=== PATIENT | female | born 2000 | race Two or more races ===

== ENCOUNTER 2024-04-27 14:33 | Emergency (ER) | payer MEDICAID, SELFPAY ==
[2024-04-27 14:57] VITALS: BP 120/73; PULSE 116; RESP 18; TEMP 37.1; O2SAT 95; BMI 33.5
--- NOTE | 2024-04-27 15:03 | XR_ITS ---
EXAMINATION: Ankle, left 3 views . Technique: Ankle AP, oblique, lateral 3 views Date and time of exam: April 27, 2024 1511 hours INDICATIONS: Patient fell today with injury to the ankle, ankle pain. FINDINGS: No acute fracture No dislocation No foreign body IMPRESSION: No acute fracture
--- NOTE | 2024-04-27 15:03 | XR_ITS ---
Examination: Foot, left, 3 views Technique: AP, oblique, lateral views foot, 3 views Date and time of exam: April 27, 2024 1511 hours INDICATIONS: Patient fell today with injury to the foot, foot pain FINDINGS: No fracture or dislocation No opaque foreign body IMPRESSION: No acute fracture
--- NOTE | 2024-04-27 15:38 | PD.EDLOWEX ---
Lower Extremity Injury RME/HPI General Chief Complaint: Extremity Injury, Lower Stated Complaint: LEFT FOOT INJURY Time Seen by Provider: 04/27/24 14:38 Arrival date/time: 04/27/24 14:33 24-year-old female presents emergency department complaints of left foot injury and left ankle pain after twisting and falling to the ground while mopping the floor Limitations: no limitations Related Data Previous Rx's ?Medication ?Instructions ?Recorded hydroxyzine HCl 50 mg tablet 50 mg PO Q6H PRN anxiety #20 tabs 07/21/23 ibuprofen 800 mg tablet 800 mg PO TID PRN pain #30 tabs 04/27/24 Allergies Allergy/AdvReac Type Severity Reaction Status Date / Time NKA* Allergy Uncoded 04/27/24 14:35 Review of Systems Review of Systems Systems Reviewed: All systems reviewed, normal except as documented Constitutional Constitutional: Reports system reviewed and no additional complaints, except as documented, Denies fever(s) and Denies headache(s) Eyes Eyes: Reports system reviewed and no additional complaints, except as documented and Denies blurry vision ENT Ears, Nose, Mouth, and Throat: Reports system reviewed and no additional complaints, except as documented, Denies headache(s), Denies nasal congestion and Denies nasal discharge Cardiovascular Cardiovascular: Reports system reviewed and no additional complaints, except as documented, Denies chest pain and Denies dyspnea Respiratory Respiratory: Reports system reviewed and no additional complaints, except as documented, Denies chest congestion, Denies cough and Denies dyspnea Gastrointestinal Gastrointestinal: Reports system reviewed and no additional complaints, except as documented and Denies abdominal pain Musculoskeletal Musculoskeletal: Reports system reviewed and no additional complaints, except as documented, Reports abnormal gait, Reports arthralgias, Denies deformity, Reports joint swelling, Denies numbness and Denies tingling Integumentary/Breasts Skin/Breast: Reports system reviewed and no additional complaints, except as documented and Denies rash Neurologic Neurologic: Reports system reviewed and no additional complaints, except as documented, Reports as per HPI, Reports abnormal gait, Denies headache(s), Denies numbness and Denies tingling Past Medical History Past Medical History NEUROLOGIC: Negative Neurological Disorders CARDIAC: Negative Cardiac Disorders ED Exam General Limitations: Present no limitations General appearance: Present alert and in no apparent distress Head Head exam: Present atraumatic Eye Eye exam: Present normal appearance, PERRL and EOMI ENT ENT exam: Present normal exam, normal oropharynx and mucous membranes moist Neck Neck exam: Present normal inspection, full ROM and trachea midline Chest Chest inspection: Present normal inspection and symmetric chest wall rise Respiratory Respiratory exam: Present normal lung sounds bilaterally Cardiovascular Cardiovascular exam: Present regular rate, normal rhythm and normal heart sounds Abdominal Exam Abdominal exam: Present soft and normal bowel sounds Extremities Exam Extremities exam: Present full ROM, tenderness, normal capillary refill and joint swelling Back Exam Back exam: Present normal inspection and full ROM Neurological Exam Neurological exam: Present alert, oriented X3 and CN II-XII intact Psychiatric Psychiatric exam: Present normal affect and normal mood Skin Skin exam: Present warm, dry, intact and normal color Course Quality Measures none Orders Category Date Time Status Crutches .NOW Care 04/27/24 15:51 Active cookie wrap [Splint / Immobilizer] STAT Care 04/27/24 15:51 Active XR ankle comp LT min 3V Stat Exams 04/27/24 15:03 Completed XR foot comp LT min 3V Stat Exams 04/27/24 15:03 Completed Vital Signs Vital signs: Vital Signs Temperature 98.7 F 04/27/24 14:57 Pulse Rate 116 H 04/27/24 14:57 Respiratory Rate 18 04/27/24 14:57 Blood Pressure 120/73 04/27/24 14:57 Pulse Oximetry (%) 95 04/27/24 14:57 Oxygen Delivery Method Room Air 04/27/24 14:57 O2 saturation 95% room air within normal limits Extremity Injury, Lower MDM Narrative MDM Narrative:: 24-year-old female presents emergency department complaints of left foot injury and left ankle pain after twisting and falling to the ground while mopping the floor On exam patient well-appearing patient not appear ill or toxic On exam patient is tenderness of left ankle and foot X-ray of the left ankle and foot obtained no acute fracture dislocation noted Patient discharged home in no distress to follow-up with primary care doctor in the next 24 to 48 hours and for any worsening symptoms to return to the ER immediately Patient data External records reviewed:: [facility] previous records Clinical information provided by:: patient Social determinants that could affect healthcare access:: none Patient has the following chronic illnesses:: None How is presenting disease/condition affected by chronic disease/condition?: no chronic disease Evaluation data The following diagnostics were reviewed and interpreted by me:: radiology exam(s) Lab and/or radiology exams considered but not ordered:: Radiology obtain Interpretation Summary: Reviewed by me Medications / Prescriptions Medications or Prescriptions considered but not ordered:: Given Rx Medication administrations:: Rx Consultations Consultation(s) initiated? (list below): No Diagnosis Extremity Injury, Lower Differential Diagnosis: ankle sprain and strain and ankle fracture Most likely diagnosis given after review of the tests above:: Ankle sprain Admission Indicated Admission indicated?: not indicated Admission Request Was there a request for admission?: No Disposition Plan Disposition Plan: Discharge Discharge Attestation Discharge Attestation: The patient and all family members were given an opportunity to ask questions and understood the discharge instructions. Discharge instructions specifically effects, indications for sooner follow up or return to the emergency department, and the expected course of current diagnosis. Patient condition: Stable Discharge Plan Plan Patient Disposition: HOME (Self Care) Disposition Comment: Stable Prescriptions/Referrals Prescriptions/Med Rec: New ibuprofen 800 mg tablet 800 mg PO TID PRN (Reason: pain) Qty: 30 0RF No Action hydroxyzine HCl 50 mg tablet 50 mg PO Q6H PRN (Reason: anxiety) Qty: 20 0RF Referrals: Janki Zacarias FNP [Primary Care Provider] - 04/28/24 Problem List Clinical Impression: Ankle sprain and strain Patient/Caregiver Discharge Instructions Additional Instructions: Please follow up with your primary care doctor in the next 24-48hrs for any worsening symptoms return here immediately Print Language: Hungarian Stand Alone Forms: [facility] Award Info., Work/School Release, Patient Portal Info Letter KRUPA/POLLO Supervising Physician JAVED Supervising Physician: Dr Bailey
== END 2024-04-27 15:53 | disposition home or self-care (01) ==
PROVIDERS: Emergency Provider Emergency Medicine; PCP Registered Nurse Community Health
DX: S93.402A Sprain of unspecified ligament of left ankle, initial encounter (principal); X50.1XXA Overexertion from prolonged static or awkward postures, initial encounter
CPT/HCPCS: 73610; 73630; 99283

== ENCOUNTER 2024-08-15 11:27 | Emergency (ER) | payer MEDICAID, SELFPAY ==
[2024-08-15 12:07] VITALS: BP 142/91; PULSE 136; RESP 20; TEMP 37.8; O2SAT 97; BMI 32.3
--- NOTE | 2024-08-15 12:12 | PD.EDRME ---
Rapid Medical Screening Exam RME Arrival date/time: 08/15/24 11:27 24-year-old female presents to the emergency department complaints of 4 days generalized weakness, vomiting and diarrhea. I have greeted and performed a focused initial assessment of this patient. Initial appropriate labs ordered at this time. A comprehensive ED assessment and evaluation of the patient and analysis of all test and completion of medical decision making process will be conducted by additional ED provider. Chief Complaint: Nausea/Vomiting/Diarrhea Time Seen by Provider: 08/15/24 11:49 Vital signs: Vital Signs Temperature 100.1 F 08/15/24 12:07 Pulse Rate 136 H 08/15/24 12:07 Respiratory Rate 20 08/15/24 12:07 Blood Pressure 142/91 H 08/15/24 12:07 Pulse Oximetry (%) 97 08/15/24 12:07 Oxygen Delivery Method Room Air 08/15/24 12:07
[2024-08-15 12:46] LABS: Basophils # (Auto) 0.1 Thou/mm3 (0.0-0.2); Basophils % (Auto) 1 % (0-2.5); Eosinophils # (Auto) 0.1 Thou/mm3 (0.0-0.5); Eosinophils % (Auto) 2 % (0-10); Hematocrit 39.1 % (36.0-46.0); Immature Granulocytes % (Auto) 0 % (0-0); Immature Granulocytes Auto 0.01 Thou/mm3 (0.00-0.00); Lymphocytes # (Auto) 2.4 Thou/mm3 (1.0-4.8); Lymphocytes % (Auto) 38 % (10-50); Mean Corpuscular HGB Conc 33.2 g/dl (31.0-37.0); Mean Corpuscular Hemoglobin 27.1 pg (25.0-35.0); Mean Corpuscular Volume 82 fL (80-100); Monocytes # (Auto) 0.2 Thou/mm3 (0.0-0.8); Monocytes % (Auto) 3 % (0-12); Neutrophils # (Auto) 3.6 Thou/mm3 (1.8-7.7); Neutrophils % (Auto) 56 % (37-80); Nucleated Red Blood Cell % 0 /100 WBC (0); Platelet Count 458 Thou/mm3 (140-440); RDW Standard Deviation 42.8 fL (36.4-46.3); White Blood Count 6.4 Thou/mm3 (3.6-11.0)
[2024-08-15] MEDS: ONDANSETRON ODT 4 MG TABRAP PO (12:57)
[2024-08-15 13:05] LABS: Collection Type, Urine Clean Catch
[2024-08-15 13:09] LABS: Alanine Aminotransferase 41 U/L (10-49); Albumin, Serum 4.6 gm/dL (3.5-5.0); Albumin/Globulin Ratio 1.4 (1.2-2.2); Alkaline Phosphatase 118 U/L (46-116); Anion Gap 14 (7-16); Aspartate Amino Transferase 54 U/L (0-34); BUN/Creatinine Ratio 16 Ratio (12-20); Bilirubin,Total 0.5 mg/dL (0.3-1.2); Blood Urea Nitrogen 13 mg/dL (9-23); Calcium 8.8 mg/dL (8.3-10.6); Calcium (Corrected) 8.8 mg/dL (8.5-10.1); Carbon Dioxide 24.9 mMol/L (20.0-31.0); Chloride 100 mMol/L (98-107); Creatinine (Component) 0.8 mg/dL (0.6-1.3); Estimated Creatinine Clearance 108.1 mL/min (>60); Globulin 3.4 gm/dL (2.3-3.5); Glucose 117 mg/dL (74-106); Lipase 31 U/L (12-53); Osmolality,Calculated 278 (275-295); Potassium 3.8 mMol/L (3.4-5.1); Sodium 139 mMol/L (136-145); eGFR > 60 See Note
[2024-08-15 13:14] LABS: HCG Qualitative,Urine Negative
--- NOTE | 2024-08-15 13:21 | PD.EDNV ---
Nausea/Vomit./Diarrhea-RME/HPI General Chief complaint: Nausea/Vomiting/Diarrhea Stated complaint: VOMITING TIMES 3 DAYS Time Seen by Provider: 08/15/24 11:49 Arrival date/time: 08/15/24 11:27 24 year old female present to emergency room with c/o of generalized abdominal pain, weakness for 3-4 days LOCATION: generalized periumbical abdominal pain SEVERITY: Symptoms are described as being severe with limitations on activities of daily living QUALITY: Symptoms are described as being cramping CONTEXT: The patient is unable to identify any inciting events. DURATION/TIMING: The symptoms started approximately 4 day ago and have been constant this then, and have been progressive getting worse. ASSOCIATED SYMPTOMS: The patient is unable to identify any other associated symptoms. MODIFYING FACTORS: The patient is unable to identify any alleviating or aggravating symptoms. PERTINENT ROS: reports emesis is nonbloody, diarrhea is nonbloody, no recent foreign travel, no recent ingestion of raw seafood or meat, no head trauma, no headache, no chest pain, no orthostatis symptoms, denies any focal abdominal pain, denies any toxicological ingestions REVIEW OF SYSTEMS: See History of Present Illness - with the exception of those mentioned in the history of present illness, all other systems reviewed and reported as negative GENERAL: In general the patient is awake, interactive, in an emergency department gurney. HEAD/EYES/EARS/NOSE/THROAT: normo-cephalic, atraumatic, mucus membranes are moist, anicteric, palpebral conjunctiva is pink, trachea is midline. CARDIOVASCULAR: regular rate and regular rhythm, no murmurs, heart sounds are not distant, strong pulses in all four extremities that are equal and symmetric bilateral upper and lower extremities, normal capillary refill. CHEST/PULMONARY: normal chest rise and fall, good air movement, clear to auscultation bilaterally, normal inspiratory to expiratory ratios without evidence of respiratory distress. NECK: No midline/Paraspinal tenderness, no step off ROM/Strenght intact No Kernig and bruzinski sign. No trauma ABDOMEN: soft, generalized abdominal tenderness, no masses appreciated BACK: normal range of motion without pain. NEUROLOGICAL: cranio-facial features are symmetric, moves all four extremities equally without obvious limitations or weakness. EXTREMITY: no tenderness to palpation over the long bones or large joints of the bilateral upper and lower extremities, no joint swelling, no joint erythema, no signs of trauma, no unilateral leg swelling and no peripheral edema. SKIN: warm, dry, well-perfused, no jaundice, no rash, no telangiectasias or petechia. PSYCH: calm, cooperative, no evidence of psychosis or agitation RME / HPI RME / HPI Narrative: 08/15/24 11:27 24-year-old female presents to the emergency department complaints of 4 days generalized weakness, vomiting and diarrhea. I have greeted and performed a focused initial assessment of this patient. Initial appropriate labs ordered at this time. A comprehensive ED assessment and evaluation of the patient and analysis of all test and completion of medical decision making process will be conducted by additional ED provider. Related Data Previous Rx's ?Medication ?Instructions ?Recorded hydroxyzine HCl 50 mg tablet 50 mg PO Q6H PRN anxiety #20 tabs 07/21/23 ibuprofen 800 mg tablet 800 mg PO TID PRN pain #30 tabs 04/27/24 azithromycin 500 mg tablet 500 mg PO QDAY 3 days #3 tabs 08/15/24 ondansetron 4 mg disintegrating 4 mg PO Q8H PRN nausea and 08/15/24 tablet vomiting #20 tabs Allergies Allergy/AdvReac Type Severity Reaction Status Date / Time NKA* Allergy Uncoded 08/15/24 11:30 Course Course Course Narrative: Patient presenting with nausea, vomiting, and diarrhea.? Vital signs were reviewed.? Patient afebrile.? Abdominal exam is benign.? No evidence of acute surgical emergency or infection requiring antibiotics.? I considered biliary disease, bowel obstruction, colitis, mesenteric ischemia, appendicitis, urinary tract infection, infectious diarrhea, however, these are less likely given the history and exam.? While in ED patient was provided with IV fluids, zofran, toradol? at which point patient stated that their symptoms had improved. Provided with prescription for zofran Advised to continue Ibuprofen and Tylenol at home as needed for pain/fever. Patient is to followup with primary physician if symptoms continue. Advised to return to the ER if concern for inability to tolerate PO intake, dehydration, or other concerns. Plan:?? Discharge from ETC Ibuprofen/Acetaminophen for Pain/Fever Prescription for ondansetron for nausea. Pt was advised on supportive therapies, including increasing dietary fiber, eating smaller meals, refrain from eating copious amounts of irritating foods (fatty foods, milk products, chocolate, and caffeine), maintaining a food diary, advancing fluids as tolerated, refraining from EtOH consumption, decreasing stress, and increasing exercise. Maintain Fluid Intake: Pedialyte/Gatorade, Juice, Non-caffeinated Pop (Sprite) Patient to follow up with PCP or in ER should symptoms worsen or not improve. Patient verbally expressed understanding and all questions were addressed. Quality Measures none Orders Category Date Time Status Bedside COVID-19 Antigen Test NOW Care 08/15/24 12:08 Active Bedside Influenza A&B Antigen Test NOW Care 08/15/24 12:09 Completed Insert IV NOW Care 08/15/24 12:12 Active CBC Stat Lab 08/15/24 12:29 Completed Comprehensive Metabolic Panel Stat Lab 08/15/24 12:29 Completed HCG Qualitative,Urine Stat Lab 08/15/24 12:50 Completed Lipase Stat Lab 08/15/24 12:29 Completed Urinalysis Stat Lab 08/15/24 12:50 Completed Ketorolac Inj [Toradol Inj] Med 08/15/24 13:22 Discontinued 30 mg IVP X1 ONE Ondansetron Inj [Zofran Inj] Med 08/15/24 12:08 Discontinued 4 mg IV X1 ONE Ondansetron Inj [Zofran Inj] Med 08/15/24 14:28 Discontinued 4 mg IV X1 ONE Ondansetron Odt [Zofran Odt] Med 08/15/24 12:46 Discontinued 4 mg PO X1 ONE Sodium Chloride 0.9% 1000 ml [Ns] 1,000 ml Med 08/15/24 12:12 Discontinued IV 999 mls/hr Reevaluation(s) Reevaluation #1: pt is feeling better and comfortable to go home, pocket rx azithromycin 500mg daily #3 for traveller diarrhea. Vital Signs Vital signs: Vital Signs Temperature 100.1 F 08/15/24 12:07 Pulse Rate 136 H 08/15/24 12:07 Respiratory Rate 20 08/15/24 12:07 Blood Pressure 142/91 H 08/15/24 12:07 Pulse Oximetry (%) 97 08/15/24 12:07 Oxygen Delivery Method Room Air 08/15/24 12:07 Nausea/Vomiting/Diarrhea Patient data External records reviewed:: [facility] previous records Clinical information provided by:: patient and family Social determinants that could affect healthcare access:: none Patient has the following chronic illnesses:: n/a How is presenting disease/condition affected by chronic disease/condition?: no chronic disease Evaluation data The following diagnostics were reviewed and interpreted by me:: lab results Lab and/or radiology exams considered but not ordered:: n/a Interpretation Summary: cbc/cmp no acute findings urine no infection hcg: negative covid/flu negative Medications / Prescriptions Medications / Prescriptions considered but not ordered:: n/a Medication administrations:: Medication Administration History Discontinued Medications Sodium Chloride (Ns) 1,000 mls @ 999 mls/hr IV .Q1H1M ONE Stop: 08/15/24 13:12 Last Admin: 08/15/24 14:32 Dose: 999 mls/hr Documented By: GAMA Ketorolac Tromethamine (Ketorolac Inj 30 Mg/Ml Vial) 30 mg IVP X1 ONE Stop: 08/15/24 13:23 Last Admin: 08/15/24 14:32 Dose: Not Given Documented By: GAMA Non-Admin Reason: Patient Refused Ondansetron HCl (Ondansetron Inj 2 Mg/Ml Inj 2 Ml) 4 mg IV X1 ONE; Protocol Stop: 08/15/24 12:09 Last Admin: 08/15/24 12:47 Dose: Not Given Documented By: HAILEY Non-Admin Reason: Not In Room Ondansetron HCl (Ondansetron Odt 4 Mg Tabrap) 4 mg PO X1 ONE; Protocol Stop: 08/15/24 12:47 Last Admin: 08/15/24 12:57 Dose: 4 mg Documented By: HAILEY Ondansetron HCl (Ondansetron Inj 2 Mg/Ml Inj 2 Ml) 4 mg IV X1 ONE; Protocol Stop: 08/15/24 14:29 Last Admin: 08/15/24 14:34 Dose: 4 mg Documented By: GAMA as stated Consultations Consultation(s) initiated? (list below): No Diagnosis Nausea Differential Diagnosis: traveler's diarrhea, food poisoning, gastroenteritis, dehydration and other (flu, UTI) Most likely diagnosis given after review of the tests above:: gastroenteritis Admission Indicated Admission indicated?: not indicated Admission Request Was there a request for admission?: No Disposition Plan Disposition Plan: Discharge Discharge Attestation Discharge Attestation: The patient and all family members were given an opportunity to ask questions and understood the discharge instructions. Discharge instructions specifically effects, indications for sooner follow up or return to the emergency department, and the expected course of current diagnosis. Patient condition: Stable Discharge Plan Plan Patient Disposition: HOME (Self Care) Health Concerns: Follow with PMD as directed Take tylenol or motrin as need Return to ED if sx worsen Prescriptions/Referrals Prescriptions/Med Rec: New azithromycin 500 mg tablet 500 mg PO QDAY 3 Days Qty: 3 0RF ondansetron 4 mg tablet,disintegrating 4 mg PO Q8H PRN (Reason: nausea and vomiting) Qty: 20 0RF No Action ibuprofen 800 mg tablet 800 mg PO TID PRN (Reason: pain) Qty: 30 0RF hydroxyzine HCl 50 mg tablet 50 mg PO Q6H PRN (Reason: anxiety) Qty: 20 0RF Referrals: Janki Zacarias FNP [Primary Care Provider] - In 1 week Problem List Clinical Impression: Gastroenteritis Patient/Caregiver Discharge Instructions Education Materials: ED Gastroenteritis, Noninfectious Print Language: Belizean Stand Alone Forms: [facility] Award Info., Patient Portal Info Letter
[2024-08-15 13:24] LABS: Bacteria,Urine 2+; Bilirubin,Urine Negative (Negative); Blood,Urine 2+ (Negative); Clarity,Urine Turbid (Clear/Hazy); Color,Urine Yellow (Lt Yel-Yel); Glucose, Urine Negative (Negative); Ketones,Urine Trace (Negative); Leukocyte Esterase,Urine Negative (Negative); Nitrite,Urine Negative (Negative); PH,Urine 6.5 (5.0-7.0); Protein,Urine 1+ (Neg - Trace); RBC,Urine 25 /hpf (0-3); Specific Gravity,Urine 1.033 (1.001-1.035); Squamous Epithelial Cell,Urine 21 /hpf (0-5); Urobilinogen,Urine Negative mg/dL (0.0-1.0); WBC,Urine 2 /hpf (0-5)
[2024-08-15 13:28] LABS: Sperm,Urine Present
[2024-08-15 13:49] VITALS: BP 136/92; PULSE 120; RESP 19; TEMP 37.5; O2SAT 96
[2024-08-15] MEDS: SODIUM CHLORIDE 0.9% 1000 ML 1,000 ML 999 ML IV (14:32)
[2024-08-15] MEDS: ONDANSETRON INJ 2 MG/ML INJ 2 ML 4 MG IV (14:34)
[2024-08-15 16:15] VITALS: BP 127/81; PULSE 114; RESP 19; TEMP 37.2; O2SAT 97
[2024-08-15 16:44] VITALS: BP 118/69; PULSE 98; RESP 16; TEMP 37.3; O2SAT 95
== END 2024-08-15 16:46 | disposition home or self-care (01) ==
PROVIDERS: Nurse Practitioner Primary Care; Emergency Provider Emergency Medicine; PCP Registered Nurse Community Health
DX: K52.9 Noninfective gastroenteritis and colitis, unspecified (principal)
CPT/HCPCS: 36415; 80053; 81001; 81025; 83690; 85025; 87400; 87811; 96374; 99284; J2405; J7030; Q0162

== ENCOUNTER 2024-08-26 14:54 | Emergency (ER) | payer MEDICAID, SELFPAY ==
[2024-08-26 15:02] VITALS: BP 137/97; PULSE 139; RESP 19; TEMP 37.5; O2SAT 95; BMI 32.0
[2024-08-26 15:18] VITALS: PULSE 147; RESP 22; O2SAT 97
--- NOTE | 2024-08-26 16:36 | EDNOTE_ITS ---
ED Abdominal Pain RME/HPI General Chief Complaint: Abdominal Pain Stated complaint: ABDOMINAL PAIN Time seen by provider: 08/26/24 16:25 Arrival date/time: 08/26/24 14:54 24-year-old female presents to the Emergency Department today via EMS for complaints of upper abdominal pain Limitations: no limitations Related Data Previous Rx's ?Medication ?Instructions ?Recorded hydroxyzine HCl 50 mg tablet 50 mg PO Q6H PRN anxiety #20 tabs 07/21/23 ibuprofen 800 mg tablet 800 mg PO TID PRN pain #30 t abs 04/27/24 ondansetron 4 mg disintegrating 4 mg PO Q8H PRN nausea and 08/15/24 tablet vomiting #20 tabs Allergies Allergy/AdvReac Type Severity Reaction Status Date / Time NKA* Allergy Uncoded 08/26/24 15:22 Review of Systems Review of Systems Systems Reviewed: All systems reviewed, normal except as documented Constitutional Constitutional: Reports system reviewed and no additional complaints, except as documented, Denies fever(s) and Denies headache(s) Eyes Eyes: Reports system reviewed and no additional complaints, except as documented and Denies blurry vision ENT Ears, Nose, Mouth, and Throat: Reports system reviewed and no additional com plaints, except as documented, Denies headache(s), Denies nasal congestion and Denies nasal discharge Cardiovascular Cardiovascular: Reports system reviewed and no additional complaints, except as documented, Denies chest pain and Denies dyspnea Respiratory Respiratory: Reports system reviewed and no additional complaints, except as documented, Denies chest congestion, Denies cough and Denies dyspnea Gastrointestinal Gastrointestinal: Reports system reviewed and no additional complaints, except as documented and Reports abdominal pain Integumentary/Breasts Skin/Breast: Reports system reviewed and no additional complaints, except as documented and Denies rash Neurologic Neurologic: Reports system reviewed and no additional complaints, except as d ocumented, Reports as per HPI and Denies headache(s) Past Medical History Past Medical History NEUROLOGIC: Negative Neurological Disorders CARDIAC: Negative Cardiac Disorders or Congestive Heart Failure RESPIRATORY: Negative Respiratory Disorders or Chronic Obstructive Pulmonary Disease (COPD) GENITOURINARY: Negative Renal Disease ENDOCRINE: Negative Diabetes Mellitus Type 1 or Diabetes Mellitus Type 2 PSYCHO/SOCIAL: Positive Depression and Anxiety Social History SMOKING STATUS: Never smoker SUBSTANCE USE: does not use ED Exam General Limitations: Present no limitations General appearance: Present alert and in no apparent distress Head Head exam: Present atraumatic, normocephalic and normal inspection Eye Eye exam: Present normal appearance, PERRL and EOMI; Absent conjunctival injection ENT ENT exam: Present normal exam, normal oropharynx and mucous membranes moist Neck Neck exam: Present normal inspection, full ROM and trachea midline Chest Chest inspection: Present normal inspection and symmetric chest wall rise Respiratory Respiratory exam: Present normal lung sounds bilaterally Cardiovascular Cardiovascular exam: Present regular rate, normal rhythm and normal heart sounds Abdominal Exam Abdominal exam: Present soft, tenderness and normal bowel sounds; Absent distention, guarding, rebound or rigidity Extremities Exam Extremities exam: Present normal inspection and full ROM Back Exam Back exam: Present normal inspection and full ROM Neurological Exam Neurological exam: Present alert, oriented X3 and CN II-XII intact Psychiatric Psychiatric exam: Present normal affect and normal mood Skin Skin exam: Present warm, dry, intact and normal color Course Quality Measures none Orders Category Date Time Status Bedside Influenza A&B Antigen Test NOW Care 08/26/24 16:[address] Screening NOW Care 08/26/24 16:[address] abdomen pelvis w con Stat Exams 08/26/24 16:25 Ordered ALPRazoLAM [Xanax] Med 08/26/24 16:27 Discontinued 0.25 mg PO X1 ONE Morphine Inj Med 08/26/24 16:25 Discontinued 4 mg IVP X1 ONE Ondansetron Inj [Zofran Inj] Med 08/26/24 16:25 Discontinued 4 mg IV X1 ONE Sodium Chloride 0.9% 1000 ml [Ns] 1,000 ml Med 08/26/24 16:26 Discontinued IV 999 mls/hr Vital Signs Vital signs: Vital Signs Temperature 99.5 F 08/26/24 15:02 Pulse Rate 139 H 08/26/24 15:02 Respiratory Rate 19 08/26/24 15:02 Blood Pressure 137/97 H 08/26/24 15:02 Pulse Oximetry (%) 95 08/26/24 15:02 Oxygen Delivery Method Room Air 08/26/24 15:02 O2 saturation 95% room air within normal limits Abdominal Pain MDM MDM Narrative MDM Narrative:: 24-year-old female presents to the Emergency Department today via EMS for complaints of upper abdominal pain On exam patient does have tenderness generalized abdomen Lab work as well as pain medication and CT scan ordered Per nursing staff patient reports that she is going to leave AGAINST MEDICAL ADVICE I went to go speak with the patient patient reports that she does not want stay here anymore and wants to go home patient is [employer] 15 patient understands the risks of leaving up to including Patient data External records reviewed:: [facility] previous records Clinical information provided by:: patient Social determinants that could affect healthcare access:: none Patient has the following chronic illnesses:: Anxiety How is presenting disease/condition affected by chronic disease/condition?: exacerbated by Evaluation data The following diagnostics were reviewed and interpreted by me:: other (specify) Lab and/or radiology exams considered but not ordered:: Labs and radiology ordered Interpretation Summary: Left prior to medication and lab work and imaging Medications / Prescriptions Medications or Prescriptions considered but not ordered:: Ordered Medication administrations:: Medication Administration History Discontinued Medications Alprazolam (Alprazolam 0.25 Mg Tablet) 0.25 mg PO X1 ONE Stop: 08/26/24 16:28 Sodium Chloride (Ns) 1,000 mls @ 999 mls/hr IV .Q1H1M ONE Stop: 08/26/24 17:26 Morphine Sulfate (Morphine Sulf Inj 10 Mg/Ml Vial) 4 mg IVP X1 ONE Stop: 08/26/24 16:26 Ondansetron HCl (Ondansetron Inj 2 Mg/Ml Inj 2 Ml) 4 mg IV X1 ONE; Protocol Stop: 08/26/24 16:26 Ordered Consultations Consultation(s) initiated? (list below): No Diagnosis Differential diagnosis abdominal pain: abdominal pain, acute appendicitis, calculus of kidney and small bowel obstruction Most likely diagnosis given after review of the tests above:: Abdominal pain Admission Indicated Admission indicated?: not indicated Admission Request Was there a request for admission?: No Disposition Plan Disposition Plan: Discharge Discharge Attestation Discharge Attestation: The patient and all family members were given an opportunity to ask questions and understood the discharge instructions. Discharge instructions specifically effects, indications for sooner follow up or return to the emergency department, and the expected course of current diagnosis. Patient condition: Stable Discharge Plan Plan Patient Disposition: Left Against Medical Advice Prescriptions/Referrals Prescriptions/Med Rec: No Action ibuprofen 800 mg tablet 800 mg PO TID PRN (Reason: pain) Qty: 30 0RF ondansetron 4 mg tablet,disintegrating 4 mg PO Q8H PRN (Reason: nausea and vomiting) Qty: 20 0RF hydroxyzine HCl 50 mg tablet 50 mg PO Q6H PRN (Reason: anxiety) Qty: 20 0RF Problem List Clinical Impression: Abdominal pain Patient/Caregiver Discharge Instructions Print Language: Greenlandic
== END 2024-08-26 16:46 | disposition left against medical advice (07) ==
LOC: SERX 17:11
PROVIDERS: Emergency Provider Family Medicine
DX: R10.10 Upper abdominal pain, unspecified (principal); Z53.29 Procedure and treatment not carried out because of patient's decision for other reasons
CPT/HCPCS: 80053; 80307; 81001; 83690; 84484; 84703; 85025; 99281

== ENCOUNTER 2024-10-01 11:49 | Emergency (ER) | payer MEDICAID, SELFPAY ==
--- NOTE | 2024-10-01 12:42 | PC.NURSE ---
CALLED FOR PT FROM LOBBY/OUTSIDE, NO ANSWER @[phone]
--- NOTE | 2024-10-01 12:43 | PC.NURSE ---
CALLED FOR PT FROM LOBBY/OUTSIDE, NO ANSWERX2@[phone]
--- NOTE | 2024-10-01 13:09 | PC.NURSE ---
CALLED FOR PT FROM LOBBY/OUTSIDE, NO ANSWERX3@[phone]
== END 2024-10-01 12:30 | disposition left against medical advice (07) ==
LOC: SERX 13:43
PROVIDERS: Emergency Provider Family Medicine
DX: Z53.21 Procedure and treatment not carried out due to patient leaving prior to being seen by health care provider (principal)

== ENCOUNTER 2025-01-19 06:06 | Emergency (ER) | payer MEDICAID, SELFPAY ==
[2025-01-19 06:29] VITALS: PULSE 95; RESP 18; O2SAT 100
[2025-01-19 06:40] VITALS: BP 123/69; PULSE 97; RESP 16; TEMP 37.1; O2SAT 99; BMI 32.7
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
--- NOTE | 2025-01-19 06:41 | XR_ITS ---
Exam: Chest PA, lateral 2 views Technique: Chest upright PA lateral 2 views Date and time of exam: 01/19/2025, 7:39 AM COMPARISON: 08/19/2023 Findings: Normal heart size. No mediastinal adenopathy. No acute fracture No pulmonary edema or pneumonia. Impression: No active disease. No evidence of traumatic injury
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
--- NOTE | 2025-01-19 06:42 | XR_ITS ---
Examination: Ribs, left, unilateral 2 views Exam date and time: 01/19/2025, 7:39 AM Findings: No evidence of fracture or dislocation. No acute bony abnormality seen. Impression: Negative exam
--- NOTE | 2025-01-19 06:49 | EKG_ITS ---
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
[2025-01-19] MEDS: HYDROcodone/APAP 5/325 TABLET 1 TAB PO (07:02)
[2025-01-19 07:30] LABS: Collection Type, Urine Clean Catch
[2025-01-19 07:43] LABS: Bilirubin,Urine Negative (Negative); Blood,Urine Negative (Negative); Color,Urine Lt-Yellow (Lt Yel-Yel); Culture Indicated,Urine Not Indicated; Glucose, Urine Negative (Negative); Ketones,Urine Negative (Negative); Leukocyte Esterase,Urine Positive (Negative); Nitrite,Urine Negative (Negative); PH,Urine 6.0 (5.0-7.0); Protein,Urine Negative (Neg - Trace); RBC,Urine 2 /hpf (0-3); Specific Gravity,Urine 1.012 (1.001-1.035); Squamous Epithelial Cell,Urine 11 /hpf (0-5); Urobilinogen,Urine Negative mg/dL (0.0-1.0); WBC,Urine 6 /hpf (0-5)
[2025-01-19 07:44] LABS: HCG Qualitative,Urine Negative
[2025-01-19 07:45] LABS: Clarity,Urine Hazy (Clear/Hazy)
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
[2025-01-19 12:45] VITALS: BP 121/79; PULSE 71; RESP 20; TEMP 36.7; O2SAT 100
[2025-01-19 12:47] VITALS: BP 121/79; PULSE 71; RESP 20; TEMP 36.7; O2SAT 100
== END 2025-01-19 12:45 | disposition home or self-care (01) ==
PROVIDERS: Emergency Provider Emergency Medicine; PCP Registered Nurse Community Health
DX: S00.83XA Contusion of other part of head, initial encounter (principal); S20.212A Contusion of left front wall of thorax, initial encounter; S39.93XA Unspecified injury of pelvis, initial encounter; V89.9XXA Person injured in unspecified vehicle accident, initial encounter
CPT/HCPCS: 70450; 71046; 71100; 72170; 81001; 81025; 93005; 99283; A9270

== ENCOUNTER 2025-03-03 15:13 | Emergency (ER) | payer MEDICAID, SELFPAY ==
[2025-03-03 15:16] VITALS: BP 119/83; PULSE 114; RESP 17; TEMP 37.2; O2SAT 99
[2025-03-03 15:22] VITALS: BMI 34.7
--- NOTE | 2025-03-03 15:25 | EKG_ITS ---
[facility] Test Date: 2025-03-03 Pat Name: EVELYN HO Department: Room: - Gender: Female Manager University: : 2000 Requested By: Ramo Buckley Order Number: [id number] Reading MD: Ramo Buckley Measurements Intervals [place] Rate: 105 P: 50 [place]: 146 QRS: 68 QRSD: 85 T: 45 QT: 319 QTc: 422 Interpretive Statements SINUS TACHYCARDIA ABNORMAL RHYTHM ECG Compared to ECG 01/19/2025 06:49:50 Sinus rhythm no longer present /store/S0/[id number]/[id number]
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
[2025-03-03 15:53] LABS: Basophils # (Auto) 0.1 Thou/mm3 (0.0-0.2); Basophils % (Auto) 1 % (0-2.5); Eosinophils # (Auto) 0.0 Thou/mm3 (0.0-0.5); Eosinophils % (Auto) 0 % (0-10); Hematocrit 39.8 % (36.0-46.0); Hemoglobin 12.9 g/dL (12.0-16.0); Immature Granulocytes Auto 0.03 Thou/mm3 (0.00-0.00); Lymphocytes # (Auto) 3.4 Thou/mm3 (1.0-4.8); Lymphocytes % (Auto) 34 % (10-50); Mean Corpuscular HGB Conc 32.4 g/dl (31.0-37.0); Mean Corpuscular Hemoglobin 24.9 pg (25.0-35.0); Mean Corpuscular Volume 77 fL (80-100); Monocytes # (Auto) 0.2 Thou/mm3 (0.0-0.8); Monocytes % (Auto) 2 % (0-12); Neutrophils # (Auto) 6.2 Thou/mm3 (1.8-7.7); Neutrophils % (Auto) 63 % (37-80); Nucleated Red Blood Cell # 0.00 Thou/mm3 (0.00-0.00); Nucleated Red Blood Cell % 0 /100 WBC (0); Platelet Count 501 Thou/mm3 (140-440); RDW Standard Deviation 45.3 fL (36.4-46.3); Red Blood Count 5.18 Miln/mm3 (4.00-5.20); White Blood Count 9.9 Thou/mm3 (3.6-11.0)
[2025-03-03 16:05] LABS: Alanine Aminotransferase 36 U/L (10-49); Albumin, Serum 4.7 gm/dL (3.5-5.0); Albumin/Globulin Ratio 1.5 (1.2-2.2); Alkaline Phosphatase 149 U/L (46-116); Anion Gap 19 (7-16); Aspartate Amino Transferase 53 U/L (0-34); BUN/Creatinine Ratio 9 Ratio (12-20); Bilirubin,Total 0.4 mg/dL (0.3-1.2); Blood Urea Nitrogen 6 mg/dL (9-23); Calcium 9.1 mg/dL (8.3-10.6); Calcium (Corrected) 9.1 mg/dL (8.5-10.1); Carbon Dioxide 20.5 mMol/L (20.0-31.0); Chloride 104 mMol/L (98-107); Creatinine (Component) 0.7 mg/dL (0.6-1.3); Estimated Creatinine Clearance 127.3 mL/min (>60); Globulin 3.2 gm/dL (2.3-3.5); Glucose 119 mg/dL (74-106); Osmolality,Calculated 283 (275-295); Potassium 3.6 mMol/L (3.4-5.1); Sodium 143 mMol/L (136-145); Total Protein 7.9 gm/dL (5.7-8.2); Troponin I < 0.002 ng/mL (0.0-0.045); eGFR > 60 See Note
[2025-03-03 16:06] LABS: Collection Type, Urine Clean Catch
[2025-03-03] MEDS: DIAZEPAM 5 MG TABLET PO (16:07)
[2025-03-03 16:22] LABS: Amphetamine/Methamp Scrn,U Negative (Negative); Barbiturate Screen,Urine Negative (Negative); Benzodiazepines Screen,Urine Negative (Negative); Benzoylecgonine Screen, Ur Negative (Negative); Fentanyl Screen,Urine Negative (Negative); Opiate Screen,Urine Negative (Negative); THC Screen,Urine Negative (Negative)
[2025-03-03 16:27] VITALS: BP 121/81; PULSE 115; RESP 19; TEMP 36.3; O2SAT 97
[2025-03-03 16:38] LABS: Bacteria,Urine Rare; Bilirubin,Urine Negative (Negative); Blood,Urine Trace (Negative); Clarity,Urine Clear (Clear/Hazy); Color,Urine Colorless (Lt Yel-Yel); Culture Indicated,Urine Not Indicated; Glucose, Urine Negative (Negative); Ketones,Urine Negative (Negative); Leukocyte Esterase,Urine Negative (Negative); Nitrite,Urine Negative (Negative); PH,Urine 7.0 (5.0-7.0); Protein,Urine Negative (Neg - Trace); RBC,Urine 3 /hpf (0-3); Specific Gravity,Urine 1.007 (1.001-1.035); Squamous Epithelial Cell,Urine 2 /hpf (0-5); Urobilinogen,Urine Negative mg/dL (0.0-1.0); WBC,Urine 2 /hpf (0-5)
== END 2025-03-03 17:51 | disposition home or self-care (01) ==
PROVIDERS: Nurse Practitioner Family; Emergency Provider Family Medicine
DX: F41.9 Anxiety disorder, unspecified (principal); Z63.9 Problem related to primary support group, unspecified
CPT/HCPCS: 36415; 80053; 80307; 81001; 84484; 85025; 93005; 99284; A9270